=== PATIENT | male | born 1985 | race Caucasian/White ===

== ENCOUNTER 2017-05-11 23:18 | Emergency (ER) | payer OTHER ==
[~2017-05-11] VITALS: Ht 180.3 cm; Wt 72.6 kg
--- NOTE | 2017-05-11 23:31 | ED PSYCHIATRIC COMPLAINT ---
History of Present Illness General Chief Complaint: Psychiatric Related Complaint Stated Complaint: BIBA FOR SI Source: patient Exam Limitations: no limitations Vital Signs & Intake/Output Vital Signs & Intake/Output Vital Signs Date Time Temp Pulse Resp B/P B/P Pulse O2 O2 Flow FiO2 Mean Ox Delivery Rate 05/12 1144 97.8 86 114/75 98 Room Air 05/12 0949 98.0 92 18 109/64 96 Room Air 05/12 0735 97.1 72 16 101/54 99 Room Air 05/12 0605 96.6 67 14 108/54 98 Room Air 05/11 2325 97.9 84 18 141/84 98 Room Air ED Intake and Output 05/12 0000 05/11 1200 Intake Total Output Total Balance Patient 160 lb Weight Weight Estimated Measurement Method Allergies Coded Allergies: No Known Allergies (05/11/17) Reconcile Medications Divalproex Sodium (Depakote) 500 MG TABLET.DR 1 TAB PO BID BIPOLAR (Reported) Gabapentin (Neurontin) 300 MG CAPSULE 1 CAP PO TID PAIN (Reported) Quetiapine Fumarate (Seroquel) 400 MG TABLET 1 TAB PO QPM SLEEP AID (Reported ) Triage Note: PT BIBA FROM HOME AFTER ARGUMENT WITH MOTHER. PATIENT STATES WALKED OUT OF THE HOUSE TO "COOL OFF" MOTHER GOT CONCERNED AND CALLED 911. PATEINT DENIES SI/HI AT THIS TIME. DENIES ILLICT DRUG OR ALCOHOL USE. CALM AND COOPERATIVE. HX OF BIPOLAR DISORDER SEEN AT [facility] FOR SAME Triage Nurses Notes Reviewed? yes Onset: Gradual Duration: hour(s): Timing: recent history Severity: moderate Associated Symptoms: anxiety, suicidal ideation HPI: 31-year-old gentleman history of bipolar disorder in intensive outpatient program, presents with allegations of being suicidal. He states that he got into an argument with his mother over money. He stormed out of the house. When he returned, there were police present at the home and took him to the emergency department he states that, "My mom thinks I wanted to kill myself when I left the house." He denies suicidality, homicidality, or hallucinations. He states that he is compliant with his medications. (LYNN OWENS,JADYN Tello) Past History Travel History Traveled to [place] past 21 day No Medical History Any Pertinent Medical History? see below for history Musculoskeletal: osteoarthritis Psychiatric: bipolar disease Surgical History Surgical History: none Psychosocial History What is your primary language Kinyarwanda Tobacco Use: Current Daily Use Daily Tobacco Use Amount/Type: => 5 Cigarettes daily Family History Hx Contributory? No (LYNN OWENS,JADYN Tello) Review of Systems Review of Systems Constitutional: Reports: no symptoms. EENTM: Reports: no symptoms. Respiratory: Reports: no symptoms. Cardiovascular: Reports: no symptoms. GI: Reports: no symptoms. Genitourinary: Reports: no symptoms. Musculoskeletal: Reports: no symptoms. Skin: Reports: no symptoms. Neurological/Psychological: Reports: no symptoms. Hematologic/Endocrine: Reports: no symptoms. Immunologic/Allergic: Reports: no symptoms. All Other Systems: Reviewed and Negative (LYNN OWENS,JADYN Tello) Physical Exam Physical Exam General Appearance: well developed/nourished, mild distress Head: atraumatic Eyes: Bilateral: PERRL, EOMI. Ears, Nose, Throat: normal pharynx, normal ENT inspection, hearing grossly normal Neck: normal inspection, supple Respiratory: normal breath sounds Cardiovascular: regular rate/rhythm Gastrointestinal: soft, non-tender Extremities: normal range of motion Neurological/Psychiatric: no motor/sensory deficits, awake, alert, normal mood/ affect, anxious Appearance/Memory/Insight: appropriate appearance, appropriate insight, denies illness Behavoir/Eye Contact/Speech: cooperative Thoughts/Hallucinations: no apparent hallucination Skin: intact, normal color, warm/dry SAD PERSONS SAD PERSONS Response Value Male Sex? yes 1 Depression/Hopelessness? yes 2 Social Support? has support 0 Total 3 SAD PERSONS Done? yes (LYNN OWENS,JADYN Tello) Progress Differential Diagnosis: bipolar, depression vs other. Plan of Care: Orders Procedure Date/time Status Regular Diet 05/12 B Active Continuous Observation Monitor 05/12 0741 Active Continuous Observation Monitor 05/11 2332 Active URINE DRUG SCREEN FOR ER ONLY 05/11 2332 Complete ETHANOL 05/11 2332 Complete DEPAKOTE LEVEL 05/11 2332 Complete COMPREHENSIVE METABOLIC PANEL 05/11 2332 Complete CBC WITHOUT DIFFERENTIAL 05/11 2332 Complete ED CRISIS PSYCH CONSULT 05/11 2332 Active Current Medications Sig/Yadira Start time Last Medication Dose Stop Time Status Admin Quetiapine Fumarate 400 MG QPM 05/12 2200 UNVr 05/12 (Seroquel) 0014 Gabapentin 300 MG Q8H 05/12 0800 AC 05/12 (Neurontin) 0812 Divalproex Sodium 500 MG BID 05/11 2352 UNVr 05/12 (Depakote ER) 1054 Divalproex Sodium 500 MG BID 05/11 235 CAN (Depakote) Trazodone HCl 50 MG AT BEDTIME NEED.. 05/11 2345 AC (Desyrel) Laboratory Tests 05/11/17 2355: Urine Opiates Screen < 100.00, Methadone Screen < 40, Barbiturate Screen < 60, Ur Phencyclidine Scrn < 6.00, Amphetamines Screen 227, U Benzodiazepines Scrn < 85, Urine Cocaine Screen < 50, Urine Cannabis Screen > 80.00 H 05/11/172350: Anion Gap 9, Estimated GFR > 60, BUN/Creatinine Ratio 23.3, Glucose 108 H, Calcium 9.4, Total Bilirubin 0.3, AST 19, ALT 21, Alkaline Phosphatase 48, Total Protein 7.0, Albumin 4.3, Globulin 2.7, Albumin/Globulin Ratio 1.6, CBC w Diff MAN DIFF ORDERED, RBC 4.71, MCV 89.5, MCH 30.2, RDW 14.5, MPV 8.6, Gran % 86.0 H, Lymphocytes % 8.4 L, Monocytes % 4.9, Eosinophils % 0.4, Basophils % 0.3, Absolute Granulocytes 16.8 H, Segmented Neutrophils 87 H, Absolute Lymphocytes 1.6, Lymphocytes 10 L, Monocytes 2, Absolute Monocytes 0.9 H, Eosinophils 1, Absolute Eosinophils 0.1, Absolute Basophils 0.1, Platelet Estimate ADEQUATE, Normocytic RBCs VERIFIED, Normochromic RBCs VERIFIED, PUBS MCHC 33.8, Fld Total RBCs Counted 100, Valproic Acid 29.2 L, Serum Alcohol < 10.0 Hand-Off Endorsed To: RADHA OWENS,JASWINDER Zavala Endorsed Time: 0700 Pending: consult (LYNN OWENS,JADYN Tello) Departure Departure Disposition: HOME OR SELF CARE Condition: Stable Clinical Impression Primary Impression: Bipolar disorder Departure Forms: Customer Survey General Discharge Information (LYNN OWENS,JADYN Tello) Departure Additional Instructions: FOLLOW UP WITH [facility] TOMORROW RETURN FOR ANY CONCERNS THE MEDICATIONS THAT YOU SHOULD BE TAKING ARE: DEPEKOTE ER 500 MG 2 PILLS TWICE A DAY GABAPENTIN 300MG 1 PILL 3 TIMES A DAY SEROQUEL 50 MG 3 TIMES A DAY NEEDED FOR ANXIETY SEROQUEL 400MG EVERY NIGHT (RADHA OWENS,JASWINDER Zavala)
[2017-05-11] MEDS ORDERED: NEURONTIN300 M1 PO (23:37)
[2017-05-11] MEDS ORDERED: DEPAKOTE500 M1 PO (23:37)
[2017-05-11] MEDS ORDERED: SEROQUEL400 M1 PO (23:38)
[2017-05-11 23:57] LABS: ABSOLUTE BASOPHIL COUNT 0.1 /CUMM (0.0-0.2); ABSOLUTE EOSINOPHIL COUNT 0.1 /CUMM (0.0-0.7); ABSOLUTE GRANULOCYTE CT 16.8 /CUMM (1.4-6.5); ABSOLUTE LYMPH COUNT 1.6 /CUMM (1.2-3.4); ABSOLUTE MONOCYTE COUNT 0.9 /CUMM (0.10-0.60); BASOPHIL % 0.3 % (0.0-2.0); EOSINOPHIL % 0.4 % (0-5); HEMATOCRIT 42.1 % (42-52); MEAN CORPUSCULAR HGB 30.2 PG (27.0-31.0); MEAN CORPUSCULAR HGB CONC 33.8 G/DL (33.0-37.0); MEAN CORPUSCULAR VOLUME 89.5 FL (80.0-94.0); MEAN PLATELET VOLUME 8.6 FL (7.4-10.4); PLATELET COUNT 221 /CUMM (130-400); RBC DISTRIBUTION WIDTH 14.5 % (11.5-14.5); RED BLOOD CELL CT 4.71 /CUMM (4.70-6.10); WHITE BLOOD CELL COUNT 19.5 /CUMM (4.8-10.8)
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
[2017-05-12 14:47] VITALS: BP 120/70
== END 2017-05-12 15:00 ==
LOC: ERH 23:18
PROVIDERS: Pediatrics
DX: F31.9 Bipolar disorder, unspecified (principal); F10.10 Alcohol abuse, uncomplicated
CPT/HCPCS: 80307; G0463; G0480